=== PATIENT | male | born 1950 | race Caucasian/White ===

== ENCOUNTER → 2019-04-14 | Outpatient (CLI) | payer OTHER, MEDICARE ==
--- NOTE | 2019-04-14 20:39 | REP ---
Clinical: Stage III chronic renal disease. Technique: Real time daugherty scale ultrasound examination using curved array transducer. Findings: The kidneys are normal in reniform shape but demonstrate increased central sinus fat and associated cortical thinning. Right kidney measures 10.9 x 4.6 x 4.6 cm and includes 2.8 x 2.4 x 1.7 cm peripelvic cyst without nephrolithiasis, hydronephrosis, or renal mass lesion. Left kidney measures 11.5 x 5.0 x 4.9 cm 1.4 cm upper pole cyst without nephrolithiasis, hydronephrosis, or renal mass lesion. Bladder is grossly unremarkable and bilateral ureteral jets are identified. Impression: Chronic medical renal disease with bilateral solitary cysts. Electronically Signed by Bib Vargas MD 04/14/2019 08:31 P
== END ==
LOC: M RAD 12:34
PROVIDERS: ATTEND Internal Medicine Nephrology
DX: N18.3 Chronic kidney disease, stage 3 (moderate) (principal); N28.1 Cyst of kidney, acquired

== ENCOUNTER → 2019-06-14 | Outpatient (REF) | payer OTHER, MEDICARE ==
[2019-06-14 13:59] LABS: ALBUMIN 3.5 GM/DL (3.2-5.2); CALCIUM LEVEL 9.1 MG/DL (8.8-10.2); CREATININE FOR GFR 2.06 MG/DL (0.70-1.30); GLOMERULAR FILTRATION RATE 34.4 (>49); MAGNESIUM LEVEL 1.4 MG/DL (1.8-2.4); PHOSPHORUS LEVEL 2.7 MG/DL (2.5-4.9); POTASSIUM SERUM 3.4 MEQ/L (3.5-5.1)
== END ==
LOC: M LAB REF 12:48
PROVIDERS: ATTEND Nurse Practitioner Family
DX: N18.3 Chronic kidney disease, stage 3 (moderate) (principal); E83.42 Hypomagnesemia

== ENCOUNTER → 2019-10-24 | Outpatient (CLI) | payer OTHER, MEDICARE ==
[~2019-10-24] MED LIST: BACI500O21 EX; BACL10TA2 PO; BUPR100T3 PO; CAPS0.022 TOP; CARD240C5 PO; DIPH25CA32 PO; GLUC4GMTAB PO; K-TA10TA2 PO; KETO2CR EXT; LASI40TA9 PO; LIDO1CRE2 EX; LISI10TA4 PO; NIZO2SHA EX; NOVOINJ SC; OMEP40CA97 PO; OPTI0.5D5 OU; PLAV1TAB2 PO; PRED5PAK PO; PROAAER10 INH; ROPI1TAB3 PO; ROSU10TA6 PO; SILD100T PO; SPIR-10 PO; STRI1AER2 IN; TEST1GEL10 TD; VITAD1000T PO; XARE20TA PO; ZOLO100T PO
== END ==
LOC: M LABSMTC 11:05
PROVIDERS: ATTEND Anesthesiology
DX: Z01.818 Encounter for other preprocedural examination (principal); Z11.59 Encounter for screening for other viral diseases
CPT/HCPCS: C9803; U0002

== ENCOUNTER 2019-10-26 06:44 | Day surgery (SDC) | payer OTHER ==
[~2019-10-26] VITALS: Ht 165.1 cm; Wt 108.4 kg
[2019-10-26] MEDS ORDERED: LIDOCAINE 2% 100MG/5ML SDV (FOR ANES.) As Ordered ONE (07:07)
[2019-10-26] MEDS ORDERED: propofoL 200 MG/20 ML VIAL As Ordered ONE ×3 (07:07→08:05)
[2019-10-26] MEDS ORDERED: NS 1,000 ML IV ONE (07:15)
--- NOTE | 2019-10-26 08:26 | ROOR ---
Patient Name: Gianni Madden Procedure Date: 10/26/2019 7:31 AM Date of : 1950 Age: 69 Room: [facility] Gender: Male Note Status: Finalized Procedure: Colonoscopy Indications: High risk colon cancer surveillance: Personal history of colonic polyps Providers: Vikash Andrade MD Referring MD: [facility], Admin. Requesting Provider: Medicines: Monitored Anesthesia Care Complications: No immediate complications. Estimated blood loss: Minimal. Procedure: Pre-Anesthesia Assessment: - Prior to the procedure, a History and Physical was performed, and patient medications and allergies were reviewed. The patient is competent. The risks and benefits of the procedure and the sedation options and risks were discussed with the patient. All questions were answered and informed consent was obtained. Patient identification and proposed procedure were verified by the physician, the nurse and the anesthesiologist in the endoscopy suite. Mental Status Examination: alert and oriented. Airway Examination: normal oropharyngeal airway and neck mobility. Respiratory Examination: clear to auscultation. CV Examination: normal. Prophylactic Antibiotics: The patient does not require prophylactic antibiotics. Prior Anticoagulants: The patient has taken Xarelto (rivaroxaban), last dose was 2 days prior to procedure. ASA Grade Assessment: III - A patient with severe systemic disease. After reviewing the risks and benefits, the patient was deemed in satisfactory condition to undergo the procedure. The anesthesia plan was to use monitored anesthesia care (MAC). Immediately prior to administration of medications, the patient was re-assessed for adequacy to receive sedatives. The heart rate, respiratory rate, oxygen saturations, blood pressure, adequacy of pulmonary ventilation, and response to care were monitored throughout the procedure. The physical status of the patient was re-assessed after the procedure. The Colonoscope was introduced through the anus and advanced to the cecum, identified by appendiceal orifice and ileocecal valve. The colonoscopy was somewhat difficult due to a tortuous colon. The patient tolerated the procedure well. The quality of the bowel preparation was good. Findings: Hemorrhoids were found on perianal exam. A few small-mouthed diverticula were found in the sigmoid colon and descending colon. There was no evidence of diverticular bleeding. Four flat polyps were found in the sigmoid colon and transverse colon. The polyps were diminutive in size. These polyps were removed with a hot snare. Resection and retrieval were complete. Estimated blood loss was minimal. The retroflexed view of the distal rectum and anal verge was normal and showed no anal or rectal abnormalities. Impression: - Hemorrhoids found on perianal exam. - Mild diverticulosis in the sigmoid colon and in the descending colon. There was no evidence of diverticular bleeding. - Four diminutive polyps in the sigmoid colon and in the transverse colon, removed with a hot snare. Resected and retrieved. - The distal rectum and anal verge are normal on retroflexion view. Recommendation: - Discharge patient to home (ambulatory). - Resume Xarelto (rivaroxaban) at prior dose tomorrow. Refer to primary physician for further adjustment of therapy. - Await pathology results. - Telephone my office for pathology results in 1 week. - Repeat colonoscopy in 5 years for surveillance of multiple polyps. Vikash Andrade MD Vikash Andrade MD 10/26/2019 8:25:18 AM Electronically signed by Vikash Andrade MD Number of Addenda: 0 Note Initiated On: 10/26/2019 7:31 AM Estimated Blood Loss: Estimated blood loss was minimal.
[2019-10-26 08:50] VITALS: BP 160/77
== END 2019-10-26 09:00 | disposition home or self-care (01) ==
LOC: M SDC 06:44
PROVIDERS: ATTEND Surgery
DX: Z12.11 Encounter for screening for malignant neoplasm of colon (principal); Z86.010 Personal history of colon polyps; K64.4 Residual hemorrhoidal skin tags; K57.50 Diverticulosis of both small and large intestine without perforation or abscess without bleeding; D12.5 Benign neoplasm of sigmoid colon; D12.3 Benign neoplasm of transverse colon; N18.3 Chronic kidney disease, stage 3 (moderate); I15.0 Renovascular hypertension; R60.0 Localized edema; E11.22 Type 2 diabetes mellitus with diabetic chronic kidney disease; N25.81 Secondary hyperparathyroidism of renal origin; F32.9 Major depressive disorder, single episode, unspecified; E78.5 Hyperlipidemia, unspecified; G47.33 Obstructive sleep apnea (adult) (pediatric); F43.10 Post-traumatic stress disorder, unspecified; K21.9 Gastro-esophageal reflux disease without esophagitis; G25.81 Restless legs syndrome; Z86.711 Personal history of pulmonary embolism; Z95.5 Presence of coronary angioplasty implant and graft; Z79.899 Other long term (current) drug therapy; Z79.4 Long term (current) use of insulin; Z79.02 Long term (current) use of antithrombotics/antiplatelets; Z79.52 Long term (current) use of systemic steroids; Z79.01 Long term (current) use of anticoagulants; F14.11 Cocaine abuse, in remission; Z88.8 Allergy status to other drugs, medicaments and biological substances; Z88.0 Allergy status to penicillin; Z88.6 Allergy status to analgesic agent; Z88.1 Allergy status to other antibiotic agents

== ENCOUNTER → 2020-12-19 | Outpatient (REF) | payer OTHER ==
[~2020-12-19] MED LIST changes: +D31000TA2 PO; +LISI10TA22 PO; -LISI10TA4 PO; +OMEP40CA4 PO; -OMEP40CA97 PO; -VITAD1000T PO
== END ==
LOC: M LAB REF 17:39
PROVIDERS: ATTEND Nurse Practitioner Family
DX: E83.42 Hypomagnesemia (principal)